=== PATIENT | female | born 1970 | race Two or more races ===

== ENCOUNTER 2023-06-30 06:20 | Day surgery (SDC) | payer OTHER ==
[~2023-06-30] VITALS: Ht 160 cm; Wt 66.7 kg
[2023-06-30] MEDS ORDERED: IBU600 MG PO (09:38)
== END 2023-06-30 15:40 | disposition home or self-care (01) ==
LOC: CIR.AMB 06:20
PROVIDERS: ATTEND Obstetrics & Gynecology Gynecology
DX: N88.8 Other specified noninflammatory disorders of cervix uteri (principal); N95.0 Postmenopausal bleeding; Z20.822 Contact with and (suspected) exposure to COVID-19; N84.0 Polyp of corpus uteri

== ENCOUNTER 2023-12-02 10:45 | Inpatient (IN) | payer OTHER ==
[~2023-12-02] VITALS: Ht 160 cm; Wt 68.0 kg
[~2023-12-02 10:45] MED LIST: IBU600 MG PO
[2023-12-08] MEDS ORDERED: CEFAZOLIN SODIUM 1,000 MG VIAL ONE ×2 (06:05→12:11)
[2023-12-08] MEDS ORDERED: POVIDONE-IODINE 118 ML BOTT TOP ONE ×2 (07:05→08:15)
[2023-12-08] MEDS ORDERED: VANCOMYCIN HCL 1,000 MG VIAL ONE (07:09)
[2023-12-08] MEDS ORDERED: CEFAZOLIN SODIUM 1,000 MG VIAL IV ONE (08:15)
[2023-12-08] MEDS ORDERED: SURGIFLO APPLICATOR 1 EACH APPL TOP ONE ×2 (08:51→09:00)
[2023-12-08] MEDS ORDERED: HEMOSTATIC MATRIX 1 KIT KIT TOP ONE ×2 (08:51→09:00)
[2023-12-08] MEDS ORDERED: RINGERS SOLUTION,LACTATED 1,000 ML IV SCH (09:45)
[2023-12-08] MEDS ORDERED: ONDANSETRON HCL 2 MG/ML VIAL IV PRN (09:45)
[2023-12-08] MEDS ORDERED: MORPHINE SULFATE 4 MG/ML CARTRIDGE IV PRN (09:45)
[2023-12-08] MEDS ORDERED: CEFAZOLIN SODIUM 1,000 MG VIAL IV SCH (12:00)
[2023-12-08 13:52] LABS: HEMATOCRIT 39.9 % (36.0-45.00); HEMOGLOBIN 13.5 g/dL (12.0-15.00); MEAN CELL VOLUME 88.6 fL (80.00-100.00); MEAN CORPUSCULAR HGB CONC 33.8 g/dl (32.0-36.0); PLATELET COUNT 292 K/uL (150-450)
[2023-12-09] MEDS ORDERED: ENOXAPARIN SODIUM 40 MG/0.4 ML SYRINGE SUBCUTANEO SCH (09:00)
== END 2023-12-09 19:46 | disposition home or self-care (01) | DRG 743 ==
LOC: O/R 12-08 05:29 → OB/GYN 12-08 05:29 → SURH 12-08 10:45 → OB/GYN 12-09 19:46
PROVIDERS: ADMIT Obstetrics & Gynecology Gynecology; ATTEND Obstetrics & Gynecology Gynecology
PROC: 0UT5FZZ Resection of Right Fallopian Tube, Via Natural or Artificial Opening With Percutaneous Endoscopic Assistance (ICD-10-PCS; 2023-12-08)
PROC: 0UT2FZZ Resection of Bilateral Ovaries, Via Natural or Artificial Opening With Percutaneous Endoscopic Assistance (ICD-10-PCS; 2023-12-08)
PROC: 0UT9FZZ Resection of Uterus, Via Natural or Artificial Opening With Percutaneous Endoscopic Assistance (ICD-10-PCS; principal; 2023-12-08 13:15)
DX: N80.03 Adenomyosis of the uterus (principal); Z20.822 Contact with and (suspected) exposure to COVID-19; N95.0 Postmenopausal bleeding